=== PATIENT | female | born 1990 ===

== ENCOUNTER 2022-10-14 09:57 | Inpatient (IN) | payer OTHER ==
[~2022-10-14] VITALS: Ht 165.1 cm; Wt 78.5 kg
[2022-10-20] MEDS ORDERED: PANTOPRAZOLE SO40 MG (15:56)
[2022-10-23] MEDS ORDERED: ACETAMINOPHEN500 M2 PO (11:11)
[2022-10-23] MEDS ORDERED: NEURONTIN300 MG PO (11:12)
[2022-10-23] MEDS ORDERED: INTEGRA F CAPS1 EACH PO (11:13)
== END 2022-10-23 14:44 | disposition home or self-care (01) | DRG 330 ==
LOC: O/R 10-20 06:44 → SURG 10-20 10:30 → SURH 10-22 15:29
PROVIDERS: Obstetrics & Gynecology Gynecology; ADMIT Surgery; ATTEND Surgery
PROC: 0DBP4ZZ Excision of Rectum, Percutaneous Endoscopic Approach (ICD-10-PCS; 2022-10-20)
PROC: 0DNW4ZZ Release Peritoneum, Percutaneous Endoscopic Approach (ICD-10-PCS; 2022-10-20)
PROC: 0TN74ZZ Release Left Ureter, Percutaneous Endoscopic Approach (ICD-10-PCS; 2022-10-20)
PROC: 0TN64ZZ Release Right Ureter, Percutaneous Endoscopic Approach (ICD-10-PCS; 2022-10-20)
PROC: 0DNP4ZZ Release Rectum, Percutaneous Endoscopic Approach (ICD-10-PCS; 2022-10-20)
PROC: 0DNN4ZZ Release Sigmoid Colon, Percutaneous Endoscopic Approach (ICD-10-PCS; 2022-10-20)
PROC: 0DNW4ZZ Release Peritoneum, Percutaneous Endoscopic Approach (ICD-10-PCS; 2022-10-20)
PROC: 0UT94ZZ Resection of Uterus, Percutaneous Endoscopic Approach (ICD-10-PCS; 2022-10-20)
PROC: 0UT74ZZ Resection of Bilateral Fallopian Tubes, Percutaneous Endoscopic Approach (ICD-10-PCS; 2022-10-20)
PROC: 0UT24ZZ Resection of Bilateral Ovaries, Percutaneous Endoscopic Approach (ICD-10-PCS; 2022-10-20)
PROC: 0DJD8ZZ Inspection of Lower Intestinal Tract, Via Natural or Artificial Opening Endoscopic (ICD-10-PCS; 2022-10-20)
PROC: 0T788DZ Dilation of Bilateral Ureters with Intraluminal Device, Via Natural or Artificial Opening Endoscopic (ICD-10-PCS; 2022-10-20)
PROC: 0DQE4ZZ Repair Large Intestine, Percutaneous Endoscopic Approach (ICD-10-PCS; principal; 2022-10-20 16:30)
PROC: 0DTN4ZZ Resection of Sigmoid Colon, Percutaneous Endoscopic Approach (ICD-10-PCS; 2022-10-20 16:30)
PROC: 3E0F7GC Introduction of Other Therapeutic Substance into Respiratory Tract, Via Natural or Artificial Opening (ICD-10-PCS; 2022-10-21)
DX: N80.519 Endometriosis of the rectum, unspecified depth (principal); K56.51 Intestinal adhesions [bands], with partial obstruction; K91.71 Accidental puncture and laceration of a digestive system organ or structure during a digestive system procedure; N80.529 Endometriosis of the sigmoid colon, unspecified depth; N80.103 Endometriosis of bilateral ovaries, unspecified depth; N73.6 Female pelvic peritoneal adhesions (postinfective); N80.03 Adenomyosis of the uterus; N72 Inflammatory disease of cervix uteri; Z20.822 Contact with and (suspected) exposure to COVID-19; J45.20 Mild intermittent asthma, uncomplicated